=== PATIENT | female | born 1945 | race Caucasian/White ===

== ENCOUNTER 2017-06-21 18:47 | Emergency (ER) | payer MEDICARE, BC ==
[~2017-06-21] VITALS: Ht 162.6 cm; Wt 104.3 kg
[~2017-06-21 18:47] MED LIST: ALL DAY ALLERGY10 MG PO; ASPI81CH PO; ATEN25; ATOR10 PO; DRON400T; FAMO20 PO; FIORICET 50-301 EACH PO; LEVSOD100 PO; LISI20 PO; XARELTO20 MG PO; ZOLP10 PO
[2017-06-21 19:48] LABS: BASOPHILS ABSOLUTE AUTO 0.06 K/mm3 (0.00-0.23); BASOPHILS PERCENT AUTO 1 % (0-2); EOSINOPHILS ABSOLUTE AUTO 1.02 K/mm3 (0.00-0.68); EOSINOPHILS PERCENT AUTO 12 % (0-6); Hematocrit 46.7 % (33.0-51.0); Hemoglobin 15.3 g/dL (11.5-16.0); IMMATURE GRAN ABSOLUTE AUTO 0.02 K/mm3 (0.00-0.10); IMMATURE GRAN PERCENT AUTO 0 % (0-1); LYMPHOCYTES ABSOLUTE AUTO 2.43 K/mm3 (0.84-5.20); LYMPHOCYTES PERCENT AUTO 29 % (21-46); MONOCYTES ABSOLUTE AUTO 0.55 K/mm3 (0.16-1.47); MONOCYTES PERCENT AUTO 7 % (4-13); Mean Corpuscular HGB 29.3 pg (26.0-34.0); Mean Corpuscular HGB Conc 32.8 g/dL (31.5-36.5); Mean Corpuscular Volume 89 fL (80-100); Mean Platelet Volume 10.4 fL (9.1-12.4); NEUTROPHILS ABSOLUTE AUTO 4.44 K/mm3 (1.96-9.15); NEUTROPHILS PERCENT AUTO 52 % (41-73); Platelet Count 255 K/mm3 (150-400); RDW Coefficient Variation 13.2 % (11.7-14.2); RDW Standard Deviation 43.8 fL (35.1-46.3); Red Blood Cell Count 5.23 M/mm3 (3.80-5.20); White Blood Cell Count 8.52 K/mm3 (4.00-11.30)
[2017-06-21 20:04] LABS: Prothrombin Time Results 10.4 Sec (9.7-11.5)
[2017-06-21 20:13] LABS: Alanine Aminotransfer (ALT/SGP 32 U/L (12-78); Albumin, Blood 4.1 g/dL (3.4-5.0); Albumin/Globulin Ratio 1.3 (0.8-1.8); Alk Phos 58 U/L (50-136); Anion Gap 6 mmol/L (6-16); Aspartate Aminotrans (AST/SGOT 28 U/L (12-37); Bilirubin, Total 0.4 mg/dL (0.1-1.0); Blood Urea Nitrogen 19 mg/dL (8-24); Bun/Creatinine Ratio 19.6 (12.0-20.0); CO2, Blood 27 mmol/L (21-32); Calcium, Blood 9.3 mg/dL (8.5-10.1); Chloride, Blood 109 mmol/L (98-108); Creatinine, Blood 0.97 mg/dL (0.40-1.00); Globulin, Blood 3.1 g/dL (2.2-4.0); Glomerular Filtration Rate >60 (60-); Glucose, Blood 109 mg/dL (70-99); Sodium, Blood 142 mmol/L (136-145); Total Protein, Blood 7.2 g/dL (6.4-8.2); Troponin I <0.015 ng/mL (0.000-0.040)
[2017-06-21 20:17] LABS: Appearance, Urine Clear (Clear); Bilirubin, Urine Neg (Neg); Blood, Urine 3+ (Neg); Color, Urine Yellow (P-Yellow); Glucose Qualitative, Urine Neg (Neg); Ketones, Urine Neg (Neg); Leukocyte Esterase, Urine Neg (Neg); Nitrite, Urine Neg (Neg); Protein, Urine Neg (Neg); Urobilinogen, Urine NORM (Normal); pH, Urine 6.5 (5.0-8.0)
[2017-06-21 20:31] LABS: Bacteria Not Seen /hpf; Squamous Epithelial Cells Not Seen /hpf (Few); White Blood Cells, Urine Not Seen /hpf (0-5)
== END 2017-06-22 00:32 | disposition home or self-care (01) ==
LOC: ER 18:47
PROVIDERS: Emergency Medicine
DX: I48.91 Unspecified atrial fibrillation (principal); R55 Syncope and collapse; Z88.8 Allergy status to other drugs, medicaments and biological substances; Z79.899 Other long term (current) drug therapy
CPT/HCPCS: 36415; 80053; 81001; 84484; 85025; 85610; 93005; 93010; 99283

== ENCOUNTER → 2017-08-30 | Outpatient (CLI) | payer MEDICARE, BC | LOC: LAB 11:41 → LAB SHORT 11:41 | DX: R35.0 Frequency of micturition (principal); R30.0 Dysuria | CPT/HCPCS: 87077; 87086; 87186 ==

== ENCOUNTER 2023-05-17 08:12 | Day surgery (SDC) | payer MEDICARE, BC ==
[~2023-05-17] VITALS: Ht 162.6 cm; Wt 109.0 kg
[~2023-05-17 08:12] MED LIST changes: +ATEN50; +ORACEA; +OZEMPIC0.25 MG/02; +Prinivil10 MG; +TRAZ50; +XARELTO20 MG
[2023-05-17] MEDS ORDERED: CETI5 (08:53)
[2023-05-17] MEDS ORDERED: THERA-D2000 UNIT (08:53)
[2023-05-17 11:16] VITALS: BP 134/88
--- NOTE | 2023-05-17 14:02 | NUR ---
05/17/23 1402 Shaun Anthony IV REMOVED INTACT. SITE WNL.
== END 2023-05-17 12:15 | disposition home or self-care (01) ==
LOC: ORSCSDS 08:12
PROVIDERS: Podiatrist Foot & Ankle Surgery
PROC: 0SGM04Z Fusion of Right Metatarsal-Phalangeal Joint with Internal Fixation Device, Open Approach (ICD-10-PCS; principal; 2023-05-17 09:30)
PROC: 0SGP04Z Fusion of Right Toe Phalangeal Joint with Internal Fixation Device, Open Approach (ICD-10-PCS; principal; 2023-05-17 09:30)
DX: M20.11 Hallux valgus (acquired), right foot (principal); M20.21 Hallux rigidus, right foot; M20.41 Other hammer toe(s) (acquired), right foot; M19.071 Primary osteoarthritis, right ankle and foot; I10 Essential (primary) hypertension; I48.91 Unspecified atrial fibrillation; Z79.01 Long term (current) use of anticoagulants; G47.33 Obstructive sleep apnea (adult) (pediatric); K21.9 Gastro-esophageal reflux disease without esophagitis; E03.9 Hypothyroidism, unspecified; Z79.899 Other long term (current) drug therapy; E66.01 Morbid (severe) obesity due to excess calories; Z68.41 Body mass index [BMI] 40.0-44.9, adult
CPT/HCPCS: C1713; J0171; J0690; J1100; J2405; J2704; J2795; J3010; J7120

== ENCOUNTER 2024-02-28 09:46 | Day surgery (SDC) | payer MEDICARE, BC ==
[~2024-02-28] VITALS: Ht 160 cm; Wt 106.1 kg
[~2024-02-28 09:46] MED LIST changes: -ATEN50; +ATEN50 PO; +CETI5; +OZEMPIC1 MG/0.72 SC; +Prinivil10 MG PO; +THERA-D2000 UNIT
[2024-02-28] MEDS ORDERED: Lactated Ringer's 1,000 ML IV ONE ×2 (10:07→10:51)
[2024-02-28] MEDS ORDERED: CeFAZolin Sodium 2,000 MG VIAL ONE (10:07)
[2024-02-28] MEDS ORDERED: NS 50 ML IV ONE (10:07)
[2024-02-28] MEDS ORDERED: Midazolam HCl 1MG / ML 2ML Vial ONE (10:18)
[2024-02-28] MEDS ORDERED: propofoL 20 ML IV ONE (10:18)
[2024-02-28] MEDS ORDERED: GEMTESA75 MG PO (10:20)
[2024-02-28] MEDS ORDERED: OZEMPIC1 MG/0.72 (10:23)
[2024-02-28] MEDS ORDERED: Ropivacaine 0.5% HCL/PF 5 MG/ML 30ML Vial ONE (11:12)
[2024-02-28] MEDS ORDERED: FentaNYL Citrate 50 MCG/ML 2 ML Injection ONE (11:39)
[2024-02-28] MEDS ORDERED: ePHEDrine Sulfate 50 MG/ML 1ML Injection ONE (12:04)
[2024-02-28] MEDS ORDERED: Bupivacaine 0.5% W/EPI 1:200000 SDV 10ML INJ ONE (12:06)
[2024-02-28] MEDS ORDERED: Ketorolac Tromethamine 30mg Vial ONE (12:18)
[2024-02-28 13:05] VITALS: BP 122/73
--- NOTE | 2024-02-28 13:18 | NUR ---
02/28/24 1318 Bree Mendoza WHEN ASKED PT. IF SHE HAD ANY PAIN, PT. VERBALIZES "DISCOMFORT IN MY LEFT BIG TOE." PT. UNABLE TO FEEL TOUCH TO BIG TOE. GOOD CAP REFILL IN LEFT TOES. PT. VERBALIZES DISCOMFORT IS TOLERABLE. PT. STATES "LEFT FOOT FEES SWOLLEN IN MY BOOT." STRAPS ON BOOT LOOSEN UP. PT. IN RECLINER WITH LEFT FOOT ELEVATED UP IN RECLINER ON PILLOW WITH ICE PACK BEHIND KNEE. PT. EATING STRING CHEESE & DRINKING CRANBERRY JUICE. PT. DENIES ANY NAUSEA.
== END 2024-02-28 13:49 | disposition home or self-care (01) ==
LOC: ORSCSDS 09:46
PROVIDERS: Podiatrist Foot & Ankle Surgery
PROC: 0SGN04Z Fusion of Left Metatarsal-Phalangeal Joint with Internal Fixation Device, Open Approach (ICD-10-PCS; principal; 2024-02-28 11:15)
DX: M20.22 Hallux rigidus, left foot (principal); M20.12 Hallux valgus (acquired), left foot; I10 Essential (primary) hypertension; G47.33 Obstructive sleep apnea (adult) (pediatric); K21.9 Gastro-esophageal reflux disease without esophagitis; E03.9 Hypothyroidism, unspecified; E66.01 Morbid (severe) obesity due to excess calories; Z68.41 Body mass index [BMI] 40.0-44.9, adult; Z79.899 Other long term (current) drug therapy
CPT/HCPCS: C1713; J0690; J1885; J2250; J2704; J2795; J3010; J7120

== ENCOUNTER 2024-03-01 20:58 | Emergency (ER) | payer MEDICARE, BC ==
[~2024-03-01] VITALS: Ht 160 cm; Wt 108.4 kg
[~2024-03-01 20:58] MED LIST changes: +GEMTESA75 MG PO; +OZEMPIC1 MG/0.72
[2024-03-01 21:20] VITALS: BP 153/98
== END 2024-03-01 23:28 | disposition home or self-care (01) ==
LOC: ER 20:58
DX: L76.22 Postprocedural hemorrhage of skin and subcutaneous tissue following other procedure (principal); I48.91 Unspecified atrial fibrillation; I10 Essential (primary) hypertension; E03.9 Hypothyroidism, unspecified; E78.00 Pure hypercholesterolemia, unspecified; Z88.8 Allergy status to other drugs, medicaments and biological substances; Z79.01 Long term (current) use of anticoagulants; Z79.890 Hormone replacement therapy; Z79.85 Long-term (current) use of injectable non-insulin antidiabetic drugs; Z79.899 Other long term (current) drug therapy
CPT/HCPCS: 99282